=== PATIENT | female | born 1990 | race Caucasian/White ===

== ENCOUNTER → 2023-08-15 10:45 | Outpatient (CLI) | payer OTHER, SELFPAY ==
[2023-08-15 19:25] LABS: Add Manual Diff / Slide Review NO; Basophils Absolute Auto 0 /uL (0-100); Basophils Percent Auto 0.8 % (0-2); Eosinophils Absolute Auto 200 /uL (0-450); Hematocrit 41.7 % (36-46); Lymphocytes Absolute Auto 2200 /uL (1100-4500); Lymphocytes Percent Auto 49.1 % (25-40); Mean Corpuscular HGB Conc 33.6 % (30-36); Mean Corpuscular Hemoglobin 30.8 PG (26-34); Mean Corpuscular Volume 91.7 fL (80-100); Monocytes Absolute Auto 500 /uL (0-900); Monocytes Percent Auto 10.5 % (3-14); Neutrophils Absolute Auto 1600 /uL (1500-7000); Neutrophils Percent Auto 35.6 % (50-75); Platelet Count 230 X10^3/uL (150-400); Red Blood Cell Count 4.55 X10^6/uL (4.0-5.2); Red Cell Distribution Width 12.9 % (11.6-14.8); White Blood Cell Count 4.5 X10^3/uL (4.5-11.0)
[2023-08-15 19:26] LABS: Alanine Aminotransferase 15 IU/L (<35); Albumin 4.2 g/dL (3.5-5.0); Albumin Globulin Ratio 1.3 (1.0-2.8); Alkaline Phosphatase 42 U/L (38-126); Aspartate Aminotransferase 24 IU/L (14-36); BUN Creatinine Ratio 23.5 (6-22); Bilirubin Total 0.7 mg/dL (0.2-1.3); Blood Urea Nitrogen 19 mg/dL (7-17); Calcium 9.2 mg/dL (8.4-10.2); Carbon Dioxide 28 mmol/L (22-32); Chloride 104 mmol/L (98-107); Estimated Glomerular Filt Rate > 60 mL/min (>60); Globulin 3.2 g/dL (1.7-4.1); Glucose 76 mg/dL (70-100); HEMOLYSIS < 15 (0-50); Potassium 4.3 mmol/L (3.4-5.1); Sodium 139 mmol/L (137-145); Total Protein 7.4 g/dL (6.3-8.2)
== END ==
PROVIDERS: PCP Physician Assistant; Visit Provider Physician Assistant
DX: Z00.00 Encounter for general adult medical examination without abnormal findings (principal)
CPT/HCPCS: 80053; 85025

== ENCOUNTER → 2023-10-17 11:50 | Outpatient (CLI) | payer OTHER, SELFPAY ==
[2023-10-17 15:37] LABS: Free T4, Direct Thyroxine 1.08 ng/dL (0.78-2.19)
[2023-10-17 15:51] LABS: Thyroid Stimulating Hormone 0.586 uIU/mL (0.47-4.68)
[2023-10-17 16:19] LABS: Follicle Stimulating Hormone 11.8 mIU/mL
== END ==
PROVIDERS: PCP Physician Assistant; Visit Provider Nurse Practitioner Adult Health
DX: E07.9 Disorder of thyroid, unspecified (principal)
CPT/HCPCS: 82397; 82670; 83001; 84439; 84443

== ENCOUNTER → 2023-11-14 12:57 | Outpatient (CLI) | payer OTHER, SELFPAY ==
[2023-11-14 20:36] LABS: Free T3, Triiodothyronine Free 3.65 pg/mL (2.77-5.27)
[2023-11-16 07:20] LABS: Thyroid Peroxidase Antibodies 20 IU/mL (0-34)
[2023-11-29 12:13] LABS: Triiodothyronine T3 Reverse 9.4
== END ==
PROVIDERS: PCP Physician Assistant; Visit Provider Naturopath
DX: R53.82 Chronic fatigue, unspecified (principal); Z73.3 Stress, not elsewhere classified; E03.9 Hypothyroidism, unspecified
CPT/HCPCS: 82533; 84481; 84482; 86376

== ENCOUNTER → 2023-12-04 17:00 | Outpatient (CLI) | payer OTHER, SELFPAY | PROVIDERS: PCP Physician Assistant; Visit Provider Nurse Practitioner Adult Health | DX: Z01.419 Encounter for gynecological examination (general) (routine) without abnormal findings (principal); Z12.4 Encounter for screening for malignant neoplasm of cervix | CPT/HCPCS: 87798; 87801 ==